=== PATIENT | male | born 1985 | race Caucasian/White ===

== ENCOUNTER 2017-03-30 00:05 | Emergency (ER) | payer OTHER ==
[~2017-03-30 00:05] MED LIST: COMPAZINE10 MG PO; FAMOTIDINE PO; NO MEDICATIONS
== END 2017-03-30 01:35 | disposition home or self-care (01) ==
LOC: CED 00:05
DX: J06.9 Acute upper respiratory infection, unspecified (principal); I10 Essential (primary) hypertension; K21.9 Gastro-esophageal reflux disease without esophagitis; F41.0 Panic disorder [episodic paroxysmal anxiety]; F17.200 Nicotine dependence, unspecified, uncomplicated
CPT/HCPCS: 99283